=== PATIENT | female | born 1940 | race Caucasian/White ===

== ENCOUNTER 2019-02-08 07:00 | Emergency (ER) | payer MEDICARE, BC, SELFPAY ==
[2019-02-08 07:13] VITALS: BP 131/94; PULSE 66; RESP 18; TEMP 37.1; O2SAT 96
[2019-02-08 07:19] VITALS: RESP 18
[2019-02-08 07:19] LABS: Bilirubin Negative (Negative); Blood Moderate (Negative); Clarity Clear (Clear); Glucose Negative (Negative); Ketones Negative (Negative); Leukocyte Esterase Large (Negative); Nitrite Positive (Negative); Specific Gravity 1.015 (1.005-1.025); Urobilinogen 0.2 EU/dL (Up TO 0.2); pH 6.5 (5-8)
[2019-02-08 07:40] LABS: C & S Indicated? Yes; WBC >50 HPF (0-5)
--- NOTE | 2019-02-08 08:13 | W.ED.GENAD ---
Discharge Plan Disposition Patient Disposition: HOME Condition: Stable Discharge Details Chief Complaint: Urinary Clinical Impression: Urinary tract infection Primary Care Provider: None,None ED Provider: Diogenes Cho Home Meds and New Rx's Prescriptions: New nitrofurantoin monohyd/m-cryst [Macrobid] 100 mg capsule 100 mg PO Q12H 5 Days Qty: 10 RF: 0 No Action multivitamin 1 EACH capsule 1 cap PO DAILY RF: 0 phenazopyridine [Azo] 95 MG tablet 95 mg PO PRN PRN (Reason: Pain) RF: 0 atorvastatin 40 mg Tablet 40 mg PO QPM RF: 0 acetaminophen 325 mg Tablet 325 mg PO PRN PRNRF: 0 aspirin [Aspirin Low Dose] 81 mg Tablet,Delayed Release (Dr/Ec) 81 mg PO DAILY RF: 0 carvedilol 3.125 mg Tablet 3.125 mg PO BID RF: 0 losartan 25 mg Tablet 25 mg PO DAILY RF: 0 Brilinta 90 mg Tablet 90 mg PO BID RF: 0 Discharge Instructions Instructions: Urinary Tract Infection in Women (ED) Additional Instructions: Please continue to stay well-hydrated and you may also continue to take your [id number] AZO medication for discomfort. Start antibiotic this morning and return immediately for any new or significant worsening of symptoms or if your symptoms have not started to improve in 48 hours. Follow-up with your primary care provider as needed for reassessment Referrals: Primary Care Provider [Outside] Medical Decision Making Patient presenting the emergency department for chief complaint of UTI. Patient reports history of urinary tract infections but has not had one for greater than 1 year. Last night around 1 AM she noticed some discomfort and throughout the night since increased with urination. Patient did take AZO prior to arrival. Patient denies any fever chills, nausea vomiting or diarrhea. Patient is stable, not hypotensive, not tachycardic, afebrile, no CVA tenderness, and otherwise unremarkable exam. Review of urinalysis does show findings consistent with urinary tract infection, UA shows moderate blood, positive nitrates, large leukocyte esterase, and greater than 50 WBCs. I feel that this is an uncomplicated UTI. Patient states that she has been on Cipro in the past but due to this being uncomplicated I do not feel that this should be the initial choice of antibiotic so patient placed upon Macrobid pending culture. Review of old cultures shows sensitivity to multiple antibiotics. Return precautions were discussed. After discussion of diagnosis and plan of care patient has no further needs, questions, or concerns and states clear understanding to return to the emergency department for any worsening symptoms. HPI General Mode of arrival: ambulatory. Date/Time Provider Initiated Documentation: 02/08/19 07:58. Limitations to Documentation: no limitations. Information obtained by: patient, RN notes reviewed and old records reviewed. History of Present Illness 78 year old F presents to the emergency department with the chief complaint of UTI, with intensity rated at 3. Quality is described as burning, and is localized to the genitals (Only with urination). Patient started experiencing this hour(s) (7) and it has been constant. No relieving factors improve symptom(s), No exacerbating factors reported . Patient notes no other symptoms.. Patient did receive the following treatments prior to arrival, other (AZO) Related Data Home Medications Medication Instructions Recorded Confirmed multivitamin 1 cap PO DAILY 02/25/14 02/08/19 phenazopyridine [Azo] 95 mg PO PRN PRN 03/14/14 02/08/19 acetaminophen 325 mg PO PRN PRN 02/08/19 02/08/19 aspirin [Aspirin Low Dose] 81 mg PO DAILY 02/08/19 02/08/19 atorvastatin 40 mg PO QPM 02/08/19 02/08/19 carvedilol 3.125 mg PO BID 02/08/19 02/08/19 losartan 25 mg PO DAILY 02/08/19 02/08/19 nitrofurantoin monohyd/m-cryst 100 mg PO Q12H 5 Days #10 cap 02/08/19 [Macrobid] ticagrelor [Brilinta] 90 mg PO BID 02/08/19 02/08/19 Previous Rx's Medication Instructions Recorded nitrofurantoin monohyd/m-cryst 100 mg PO Q12H 5 Days #10 cap 02/08/19 [Macrobid] Allergies Allergy/AdvReac Type Severity Reaction Status Date / Time No Known Allergies Allergy Unverified 03/14/14 13:49 General Stated Complaint: GenMedical JT: 4 Review of Systems Constitutional Denies body ache(s), Denies chills, Denies fever(s), Denies malaise and Denies weakness Cardiovascular Denies chest pain Respiratory Reports system reviewed and no additional complaints, except as docu Gastrointestinal Denies abdominal pain, Denies nausea and Denies vomiting Genitourinary Reports as per HPI, Denies hematuria, Reports dysuria and Reports urinary urgency Neurologic Denies weakness [facility] Social History Smoking/Tobacco Use Status: Never Alcohol Intake: former Drug use: Never Substance use type: does not use Do you feel safe at home: Yes Do you feel safe in your relationship?: Yes Exam Const General: cooperative and no acute distress Orientation: alert, awake and oriented x3 Resp Effort & Inspection: normal respiratory effort and able to speak in complete sentences Auscultation: clear to auscultation bilaterally Cardio Rate: regular rate Rhythm: regular rhythm Heart Sounds: S1 normal and S2 normal GI Palpation: nontender Back/Spine/Pelvis Back: no CVA tenderness Neuro General: alert, awake and oriented x3 Extrem General: normal capillary refill Course Vital Signs Temperature 37.1 C 02/08/19 07:13 Pulse 66 02/08/19 07:13 Respiratory Rate 18 02/08/19 07:13 Blood Pressure 131/94 H 02/08/19 07:13 Pulse Oximetry 96 02/08/19 07:13 Temperature 37.1 C 02/08/19 07:13 Temperature Source Temporal Artery Scan 02/08/19 07:13 Pulse 66 02/08/19 07:13 Respiratory Rate 18 02/08/19 07:19 Respiratory Effort Non-Labored 02/08/19 07:19 Respiratory Depth Normal 02/08/19 07:19 Respiratory Pattern Normal 02/08/19 07:19 Blood Pressure 131/94 H 02/08/19 07:13 Blood Pressure Position Sitting 02/08/19 07:13 Pulse Oximetry 96 02/08/19 07:13 Oxygen Delivery Method Room Air 02/08/19 07:13 Oxygen Flow Rate 0 02/08/19 07:13 Pain Level 3 02/08/19 07:39 Lab/Test Results Lab/Test Results: 02/08/19 07:10 Urine - Reflex from Ua Urine Culture - Pending Laboratory Tests Range/Units 02/08/19 07:10 Urine Color (Yellow) Yellow Urine Clarity (Clear) Clear Urine pH (5-8) 6.5 Ur Specific [place] (1.005-1.025) 1.015 Urine Protein (Negative) mg/dL 100 H Urine Ketones (Negative) mg/dL Negative Urine Blood (Negative) Moderate H Urine Nitrite (Negative) Positive H Urine Bilirubin (Negative) Negative Urine Urobilinogen (Up TO 0.2) EU/dL 0.2 Ur Leukocyte Esterase (Negative) Large H Urine RBC Not Applicable Urine WBC (0-5) HPF >50 Ur Epithelial Cells Not Applicable Urine Crystals Not Applicable Urine Bacteria Not Applicable Urine Mucus Not Applicable Ur Culture Indicated? Yes Urine Glucose (Negative) mg/dL Negative
== END 2019-02-08 08:35 | disposition home or self-care (01) ==
PROVIDERS: Emergency Provider Nurse Practitioner Family
DX: N39.0 Urinary tract infection, site not specified (principal); B96.89 Other specified bacterial agents as the cause of diseases classified elsewhere; Z87.440 Personal history of urinary (tract) infections
CPT/HCPCS: 87077; 99283; 81003; 81015; 87086; 87186

== ENCOUNTER 2020-03-28 13:12 | Emergency (ER) | payer MEDICARE, BC, SELFPAY ==
[2020-03-28 13:12] VITALS: BP 166/105; PULSE 88; RESP 16; TEMP 36.6; O2SAT 98
--- NOTE | 2020-03-28 13:35 | ED.GENADUL_ITS ---
Discharge Plan Disposition Patient Disposition: HOME Condition: Stable Discharge Details Clinical Impression: Fall (on) (from) other stairs and steps, initial encounter, Sprain of right lower leg Primary Care Provider: None,None ED Provider: Mary Munoz Home Meds and New Rx's Prescriptions: Continued multivitamin 1 EACH capsule 1 cap PO DAILY RF: 0 phenazopyridine [Azo] 95 MG tablet 95 mg PO PRN PRN (Reason: Pain) RF: 0 atorvastatin 40 mg Tablet 40 mg PO QPM RF: 0 acetaminophen 325 mg Tablet 325 mg PO PRN PRNRF: 0 aspirin [Aspirin Low Dose] 81 mg Tablet,Delayed Release (Dr/Ec) 81 mg PO DAILY RF: 0 carvedilol 3.125 mg Tablet 3.125 mg PO BID RF: 0 losartan 25 mg Tablet 25 mg PO DAILY RF: 0 Discharge Instructions Instructions: Leg Sprain (ED), Walking Boot (ED) Additional Instructions: Follow up with primary care provider in 3-5 days. Return to ED sooner if any worsening or concerns. Increase oral fluids. Please take Tylenol with food every 4-6 hours as needed for pain and swelling. Rest, ice, compression, elevation. Please return for any worsening or concerns. Follow-up with PCP if continued pain. Discharge Data Discharge Date/Time-TO BE ENTERED AT DEPARTURE: 03/28/20 16:35 Medical Decision Making 79-year-old female presents to the ED via EMS for a trip and fall prior to arrival. She was coming up a step and lost her balance. She fell and is unable to tolerate weightbearing. She complains of right lower extremity pain and right ankle pain. No obvious deformity noted CMS distally is intact. She denies any knee pain. Denies any other complaints no neck pain no back pain no LOC did not hit her head. She did take 2 Tylenol prior to arrival. She has a past medical history of hypertension and high cholesterol, osteoporosis 1337: X-ray tib-fib and right ankle ordered at this time. EXAM: XR TIB/FIB RT CLINICAL HISTORY: Fall, R/O fracture TECHNIQUE: COMPARISON: CR XR ANKLE RT COMPLETE from 03/28/2020 FINDINGS: Three views of the leg and three views of the ankle were obtained. There is mild deformity of the lateral tibial plateau seen on the AP view of the knee, the patient reports no symptomatology referable to the knee and the findings are likely degenerative in nature. No fracture seen involving the remaining portions of the leg or the ankle. Ankle mortise is well maintained. EXAM: XR TIB/FIB RT CLINICAL HISTORY: Fall, R/O fracture TECHNIQUE: COMPARISON: CR XR ANKLE RT COMPLETE from 03/28/2020 FINDINGS: Three views of the leg and three views of the ankle were obtained. There is mild deformity of the lateral tibial plateau seen on the AP view of the knee, the patient reports no symptomatology referable to the knee and the findings are likely degenerative in nature. No fracture seen involving the remaining portions of the leg or the ankle. Ankle mortise is well maintained. IMPRESSION: No evidence of acute fracture. Care management called to get a walker for patient and walking boot ordered. Discussed x-ray results with patient who verbalized understanding. HPI General Mode of arrival: ambulatory . Date/Time Provider Initiated Documentation: 03/28/20 13:19 . Limitations to Documentation: no limitations . Information obtained by: patient . HPI Narrative: 79-year-old female presents to the ED via EMS for a trip and fall prior to arrival. She was coming up a step and lost her balance. She fell and is unable to tolerate weightbearing. She complains of right lower extremity pain and right ankle pain. No obvious deformity noted CMS distally is intact. She denies any knee pain. Denies any other complaints no neck pain no back pain no LOC did not hit her head. She did take 2 Tylenol prior to arrival. She has a past medical history of hypertension and high cholesterol, osteoporosis Related Data Home Medications Medication Instructions Recorded Confirmed multivitamin 1 cap PO DAILY 02/25/14 03/28/20 phenazopyridine [Azo] 95 mg PO PRN PRN 03/14/14 03/28/20 acetaminophen 325 mg PO PRN PRN 02/08/19 03/28/20 aspirin [Aspirin Low Dose] 81 mg PO DAILY 02/08/19 03/28/20 atorvastatin 40 mg PO QPM 02/08/19 03/28/20 carvedilol 3.125 mg PO BID 02/08/19 03/28/20 losartan 25 mg PO DAILY 02/08/19 03/28/20 Allergies Allergy/AdvReac Type Severity Reaction Status Date / Time No Known Allergies Allergy Unverified 03/28/20 13:18 General Stated Complaint: Orthopedic JT: 4 Review of Systems Narrative: Constitutional: Negative for weight loss, alert and oriented, well groomed, normal body habitus, appears comfortable. HEENT: Denies trauma, headaches, blurry vision, nasal discharge, sore throat, trouble swallowing. Chest: Denies chest pain, palpitations, irregular rhythm, hypertension. Respiratory: Denies Shortness of breath, cough, hemoptysis. GI: Denies abdominal pain, nausea, vomiting, diarrhea, constipation. : Denies dysuria, hematuria, flank pain, rectal bleeding. Neuro: Denies dizziness, blurry vision, weakness, syncope, headache or facial n umbness. Hematologic: Denies easy bruising, intolerance to heat or cold, hair loss. [facility] Social History Smoking/Tobacco Use Status: Never Smoking risk assessment performed?: Yes Alcohol Intake: former Drug use: Never Substance use type: does not use Do you feel safe at home: Yes Do you feel safe in your relationship?: Yes Exam Narrative Exam Narrative: Constitutional: Alert and oriented x3. Appears stated age. Normal body habitus. Head: Normocephalic, no trauma. Eyes: Pupils PERRLA, Red reflex noted, EOM's intact. Eyelids symmetrical without lesions, discharge, or swelling. ENT: Bilateral TM's WNL, External ear normal to inspection, no mastoid TTP, swelling, or erythema, Nasal turbinates WNL, no nasal discharge. Normal dentition, Posterior pharynx WNL, no exudate. Chest: RRR, Normal S1, S2, distal pulses intact. Resp: Lungs clear to auscultation bilaterally, no wheezes, rales, or rhonchi. Musculoskeletal: Normal gait, 5/5 strength to all four extremities. Skin: No suspicious rashes or lesions. Capillary refill less than 2 sec. Neurologic: Cranial nerves II-XII intact. Alert and oriented x 3. DTR's intact. Hematologic/Lymphatic: No ecchymosis, no lymphadenopathy. Course Vital Signs Vital signs: Vital Signs Temperature 36.6 C 03/28/20 13:12 Pulse 88 03/28/20 13:12 Respiratory Rate 16 03/28/20 13:12 Blood Pressure 166/105 H 03/28/20 13:12 Pulse Oximetry 98 03/28/20 13:12 Temperature 36.6 C 03/28/20 13:12 Temperature Source Skin 03/28/20 13:12 Pulse 88 03/28/20 13:12 Respiratory Rate 16 03/28/20 13:12 Respiratory Effort Non-Labored 03/28/20 13:12 Blood Pressure 166/105 H 03/28/20 13:12 Blood Pressure Position Sitting 03/28/20 13:12 Pulse Oximetry 98 03/28/20 13:12 Oxygen Delivery Method Nasal Cannula 03/28/20 13:12 Pain Level 0 03/28/20 13:12 Comment 03/28/20 13:12
--- NOTE | 2020-03-28 14:35 | DI.RAD_ITS ---
EXAM: XR TIB/FIB RT CLINICAL HISTORY: Fall, R/O fracture TECHNIQUE: COMPARISON: CR XR ANKLE RT COMPLETE from 03/28/2020 FINDINGS: Three views of the leg and three views of the ankle were obtained. There is mild deformity of the la teral tibial plateau seen on the AP view of the knee, the patient reports no symptomatology referable to the knee and the findings are likely degenerative in nature. No fracture seen involving the remaining portions of the leg or the ankle. Ankle mortise is well kasandra ntained. IMPRESSION: No evidence of acute fracture. RADIATION DOSE DELIVERED: Total DLP
--- NOTE | 2020-03-30 08:21 | CMPROGNOTE_ITS ---
- If Service Date Differs Date of service: 03/29/20 Time of Service: 08:22 Care Management Progress Note Anh is seen in the ED on 03/28/20 for a leg sprain. At the request of ED provider, CM coordinates a referral to [facility] to assist Anh in establishing care with a PCP. Anh specifically requests that the referral be sent to [facility], as both her and son are patients at that clinic. She has BCBS and Medicare for insurance.
== END 2020-03-28 16:35 | disposition home or self-care (01) ==
PROVIDERS: Emergency Provider Registered Nurse Emergency
DX: S86.911A Strain of unspecified muscle(s) and tendon(s) at lower leg level, right leg, initial encounter (principal); W10.8XXA Fall (on) (from) other stairs and steps, initial encounter; I10 Essential (primary) hypertension
CPT/HCPCS: 29505; 99284; 73590; 73610; 99283; L4361